=== PATIENT | male | born 1955 | race Caucasian/White ===

== ENCOUNTER 2017-02-20 07:37 | Day surgery (SDC) | payer OTHER ==
[~2017-02-20] VITALS: Ht 175.3 cm; Wt 113.0 kg
[~2017-02-20 07:37] MED LIST: GABA-502 PO; HYDR-4150 PO; IBUP200C PO; LISI10TA PO; METF500T4 PO; Sodium Chloride LOK Flush 10 mL Syringe IV PRN; TRAM50TA2 PO; fentaNYL-PF 50 mCg/mL 2 mL Inj IVPUSH PRN
[2017-02-20 08:01] VITALS: BP 119/73; PULSE 71; RESP 14; O2SAT 99
[2017-02-20] MEDS: 0.9% Sodium Chloride 1,000 ML IV SCH ×2 (08:36→08:51)
[2017-02-20 08:57] VITALS: BP 113/76; PULSE 67; RESP 14; O2SAT 91
[2017-02-20 09:06] VITALS: BP 111/74; PULSE 63; RESP 14; O2SAT 90
--- NOTE | 2017-02-20 13:44 | ENDO ---
[address] [address] ENDOSCOPY PROCEDURE PATIENT: SHANIQUE REAGAN : 1955 MR#: [id number] ADMIT: 02/20/2017 JOB ID: [id number] DATE OF SURGERY: 02/20/2017 OPERATION: Colonoscopy with snare polypectomy and colonoscopy with biopsy. PREOPERATIVE DIAGNOSIS(ES): Family history of colon cancer. POSTOPERATIVE DIAGNOSIS(ES): 1. A 2 mm sigmoid polyp, removed by cold biopsy forceps. 2. A 5 mm sigmoid polyp, removed by hot snare polypectomy. ANESTHESIA: Fentanyl 75 mcg, versed 4 mg IV administered. COMPLICATIONS: None. BLOOD LOSS: Minimal. DESCRIPTION OF PROCEDURE: After risks and benefits were explained to the patient, informed consent was obtained. After anesthesia was administered, colonoscope was inserted per rectum to cecum. Mucosa was carefully examined. Prep of the patient was excellent. After the procedure was done, scope was withdrawn and procedure terminated. FINDINGS: Upon inspection of the anus, no masses, hemorrhoids, ulcers, or fissures were seen throughout the entire examination. A 2 mm sigmoid polyp removed by cold biopsy forceps. There was also a 5 mm sigmoid polyp removed by hot snare polypectomy. No other polyps or masses were seen. Retroflexion was normal. IMPRESSIONS: 1. A 2 mm sigmoid polyp, removed by cold biopsy forceps. 2. A 5 mm sigmoid, removed by hot snare polypectomy. RECOMMENDATIONS: Await pathology results. Repeat colonoscopy in five years given family history of colon cancer.
--- NOTE | 2017-02-23 14:57 | PATH ---
SURGICAL PATHOLOGY Attending Physician:Alfonzo Welch MD CASE STATUS: Signed Out PATIENT NAME: SHANIQUE REAGAN JR PID: [id number] : 1955 DATE COLLECTED:02/20/2017 16:13 SPECIMEN: Colon, Biopsy CLINICAL HISTORY: FAMILY HISTORY COLON CANCER, COLON POLYPS 1). SIGMOID POLYPS X2 FINAL DIAGNOSIS: Sigmoid Polyps x2: Hyperplastic polyps. ICD10 K63.5 GROSS DESCRIPTION: The specimen is received in one formalin filled container labeled with the patient's name, sublabeled "sigmoid polyps" and consists of 4 portions of tissue which aggregate to 0.4 x 0.4 x 0.3 CM. The specimen is entirely submitted in one cassette. 02/20/2017 [facility] MICRO DESCRIPTION: Please see diagnosis. ICD-9 CODES: CPT CODES: 1: 07892 Electronically Signed Out Mine Barnett MD [facility] Pathology [facility] [address], [place] [address] Technical component performed at [facility], [facility] [address], [place], [address]
== END 2017-02-20 23:59 | disposition home or self-care (01) ==
LOC: END 07:37
PROVIDERS: ATTEND Internal Medicine Gastroenterology
DX: Z12.11 Encounter for screening for malignant neoplasm of colon (principal); K63.5 Polyp of colon
CPT/HCPCS: 45380; 45385; G0500; J2250; J3010; J7030